=== PATIENT | female | born 1995 | race American Indian/Alaskan Native ===

== ENCOUNTER 2016-11-20 14:55 | Emergency (ER) | payer SELFPAY ==
[2016-11-20 15:03] VITALS: BP 120/77
--- NOTE | 2016-11-20 16:04 | XRay Report ---
Single view chest: History: Cough. Findings: Normal cardiomediastinal silhouette. Trachea is midline. No consolidation, pneumothorax or pleural effusion. Impression No acute cardiopulmonary findings.
--- NOTE | 2016-11-20 16:40 | Emergency Department Report ---
Entered by SINGH HIGGINS, acting as scribe for FADIA ADHIKARI NP. - General Chief Complaint: Upper Respiratory Infection Stated Complaint: FLU SYMPTOMS Time Seen by Provider: 11/20/16 15:42 Source: patient Mode of arrival: Ambulatory Limitations: No Limitations - History of Present Illness Initial Comments: 21 y/o female presents to the ED c/o throat pain that began 3 days ago. Associated symptoms include fever, chills, body aches, SOB, productive cough with green sputum and hoarseness but denies ear pain and chest pain. Pain is described as constant and 10/10 on a severity scale. No alleviating or aggravating factors. Allergic to lidocaine. LMP 10/30/16. MD Complaint: sore throat Onset/Timin -: days(s) Severity: severe Severity scale (0 -10): 10 Consistency: constant Improves With: nothing Worsens With: nothing Associated Symptoms: fever, chills, sore throat, cough, shortness of breath, hoarseness, other (bodyaches, no ear pain, no chest pain) Treatments Prior to Arrival: none - Related Data Previous Rx's Medication Instructions Recorded Last Taken Type Ibuprofen [Motrin 600 MG tab] 600 mg PO Q8H PRN #30 tablet 05/10/16 Unknown Rx Multivitamin with Iron 1 each PO DAILY #30 tablet 05/10/16 Unknown Rx [Multivitamins with Iron] Amoxicillin/K Clav Tab [Augmentin 1 tab PO Q12HR #20 tab 11/20/16 Unknown Rx 875 mg] Guaifenesin/Pseudoephedrne HCl 1 each PO BID PRN #24 tab.er.12h 11/20/16 Unknown Rx [Mucinex D ER 1,200-120 mg Tab] Ibuprofen [Motrin 800 MG tab] 800 mg PO Q8HR PRN #30 tablet 11/20/16 Unknown Rx Allergies Allergy/AdvReac Type Severity Reaction Status Date / Time latex Allergy Mild Rash Verified 05/08/16 18:40 lidocaine Allergy Swelling Verified 11/20/16 14:59 ED Review of Systems Comment: All other systems reviewed and negative Constitutional: chills, fever, other (bodyaches) ENT: throat pain, other (hoarseness ). denies: ear pain Respiratory: cough, shortness of breath Cardiovascular: denies: chest pain ED Past Medical Hx - Past Medical History Hx Hypertension: No Hx Congestive Heart Failure: No Hx Diabetes: No Hx Deep Vein Thrombosis: No Hx Renal Disease: No Hx Sickle Cell Disease: No Hx Seizures: No Hx Asthma: No Hx HIV: No - Surgical History Past Surgical History?: No - Social History Smoking Status: Never Smoker Substance Use Type: None - Medications Home Medications: Home Medications Medication Instructions Recorded Confirmed Last Taken Type Ibuprofen [Motrin 600 MG tab] 600 mg PO Q8H PRN #30 tablet 05/10/16 Unknown Rx Multivitamin with Iron 1 each PO DAILY #30 tablet 05/10/16 Unknown Rx [Multivitamins with Iron] Amoxicillin/K Clav Tab [Augmentin 1 tab PO Q12HR #20 tab 11/20/16 Unknown Rx 875 mg] Guaifenesin/Pseudoephedrne HCl 1 each PO BID PRN #24 tab.er.12h 11/20/16 Unknown Rx [Mucinex D ER 1,200-120 mg Tab] Ibuprofen [Motrin 800 MG tab] 800 mg PO Q8HR PRN #30 tablet 11/20/16 Unknown Rx ED Physical Exam - General Limitations: No Limitations General appearance: alert, in no apparent distress - Head Head exam: Present: atraumatic, normocephalic, normal inspection - Eye Eye exam: Present: normal appearance, PERRL, EOMI Pupils: Present: normal accommodation - ENT ENT exam: Present: normal external ear exam, other (frontal and maxillary sinus pain, throat lessions, white exudate, erythema) - Expanded ENT Exam Expanded Ear exam: Absent: auricular hematoma, auricular trauma TM/Canal exam: Erythema: Right TM, Left TM Mouth exam: Absent: trismus, tongue normal, tongue elevation Teeth exam: Present: normal inspection Throat exam: Positive: tonsillar erythema, tonsillomegaly, tonsillar exudate, other (bilat frontal and maxillary sinus pain to palpaton , nose: bilater turbinate erythema boggy no obstruction). Negative: R peritonsillar mass, L peritonsillar mass - Neck Neck exam: Present: normal inspection, full ROM. Absent: tenderness - Respiratory Respiratory exam: Present: normal lung sounds bilaterally. Absent: wheezes, rales, rhonchi - Cardiovascular Cardiovascular Exam: Present: regular rate, normal rhythm, normal heart sounds. Absent: systolic murmur, diastolic murmur, rubs, gallop - GI/Abdominal GI/Abdominal exam: Present: soft, normal bowel sounds. Absent: tenderness, guarding, rebound - Extremities Exam Extremities exam: Present: normal inspection, full ROM, normal capillary refill. Absent: tenderness, pedal edema, joint swelling, calf tenderness - Back Exam Back exam: Present: normal inspection, full ROM. Absent: tenderness, CVA tenderness (R), CVA tenderness (L), muscle spasm, paraspinal tenderness, vertebral tenderness, rash noted - Neurological Exam Neurological exam: Present: alert, oriented X3 - Psychiatric Psychiatric exam: Present: normal affect, normal mood - Skin Skin exam: Present: warm, dry, intact, normal color. Absent: rash ED Course Vital Signs 11/20/16 14:59 Temperature 98.5 F Pulse Rate 86 Blood Pressure 120/77 O2 Sat by Pulse 96 Oximetry ED Medical Decision Making - Medical Decision Making pt presents for sinus congestion cough productive yellow, and sore throat , exam : TM erythema bilat , nose :bilat turbinate erythema edema clear post nasal drip , bilat frontal and maxillary sinus pain to palpation pharynx: moderate erythema exudate white, lesions, bilat tonsilomegaly, noted cervicle lymph lungs clear bilat no wheezing , given fever will treat for sinusitis, URI pt will follow up with primary care doctor if symptoms not improving ED Disposition Clinical Impression: Sinusitis Qualifiers: Sinusitis location: maxillary Chronicity: acute Recurrence: non-recurrent Qualified Code(s): J01.00 - Acute maxillary sinusitis, unspecified Pharyngitis Qualifiers: Pharyngitis/tonsillitis etiology: unspecified etiology Qualified Code(s): J02.9 - Acute pharyngitis, unspecified Disposition: - TO HOME OR SELFCARE Is pt being admited?: No Does the pt Need Aspirin: No Condition: Stable Instructions: Sinusitis (ED) Prescriptions: Amoxicillin/K Clav Tab [Augmentin 875 mg] 1 tab PO Q12HR #20 tab Guaifenesin/Pseudoephedrne HCl [Mucinex D ER 1,200-120 mg Tab] 1 each PO BID PRN #24 tab.er.12h PRN Reason: Cough Ibuprofen [Motrin 800 MG tab] 800 mg PO Q8HR PRN #30 tablet PRN Reason: Pain Referrals: PRIMARY CARE, [Primary Care Provider] - 3-5 Days Forms: Work/School Release Form(ED) Time of Disposition: 16:40 This documentation as recorded by the GISELA campos ELIZABETH,accurately reflects the service I personally performed and the decisions made by me, FADIA ADHIKARI, JONI.
== END 2016-11-20 16:45 | disposition home or self-care (01) ==
LOC: ED 14:55
DX: J01.00 Acute maxillary sinusitis, unspecified (principal); J02.9 Acute pharyngitis, unspecified; Z88.8 Allergy status to other drugs, medicaments and biological substances; Z91.040 Latex allergy status
CPT/HCPCS: 71010; 81025

== ENCOUNTER 2016-12-06 15:01 | Emergency (ER) | payer SELFPAY ==
[2016-12-06 16:08] VITALS: BP 117/83
--- NOTE | 2016-12-08 14:31 | ED Elopement Review ---
ED Pt Elopement review - Call Back decision Pt Call Back Decision: No action required
== END 2016-12-06 19:48 | disposition left against medical advice (07) ==
LOC: ED 15:01
DX: J02.9 Acute pharyngitis, unspecified (principal); R05 Cough; Z53.21 Procedure and treatment not carried out due to patient leaving prior to being seen by health care provider
CPT/HCPCS: 87116; 87430

== ENCOUNTER 2016-12-07 06:49 | Emergency (ER) | payer SELFPAY ==
[2016-12-07 06:56] VITALS: BP 128/96
--- NOTE | 2016-12-07 07:29 | XRay Report ---
AP CHEST: HISTORY: Cough AP view of the chest demonstrates a normal mediastinal and cardiac contour with clear lungs and normal bony and soft tissue structures. IMPRESSION: Unremarkable AP chest. No change since 11/20/16.
--- NOTE | 2016-12-07 09:58 | Emergency Department Report ---
ED Peds HEENT HPI - General Chief Complaint: Sore Throat Stated Complaint: THROAT PAIN, COUGH Source: patient Mode of arrival: Ambulatory Limitations: No Limitations - History of Present Illness Initial Comments: 21 year old female presents to ED with sore throat and cough. patient states she was here yesterday and had strep throat test but she left before she could obtain results and would like to know results. patient is stable, neurologically intact and in no acute distress. patient states she was has finished 10 days of Augmentin for previously diagnosed strep throat and sinusitis. MD Complaint: throat pain Onset/Timin -: week(s) Fever: No Pain Location: throat Severity scale (0 -10): 0 Consistency: constant Improves With: nothing Worsens With: nothing Context: recent URI Associated Symptoms: nasal congestion/discharge, sore throat, cough Treatments Prior: none - Centor Criteria Exudate or Swelling of Tonsils: (0) No Tender/Swollen Anterior Cervical Lymph Nodes: (0) No Fever ( T > 38C, 100.4F): (0) No Abscence of Cough: (0) No - Related Data Previous Rx's Medication Instructions Recorded Last Taken Type Ibuprofen [Motrin 600 MG tab] 600 mg PO Q8H PRN #30 tablet 05/10/16 Unknown Rx Multivitamin with Iron 1 each PO DAILY #30 tablet 05/10/16 Unknown Rx [Multivitamins with Iron] Amoxicillin/K Clav Tab [Augmentin 1 tab PO Q12HR #20 tab 11/20/16 Unknown Rx 875 mg] Guaifenesin/Pseudoephedrne HCl 1 each PO BID PRN #24 tab.er.12h 11/20/16 Unknown Rx [Mucinex D ER 1,200-120 mg Tab] Ibuprofen [Motrin 800 MG tab] 800 mg PO Q8HR PRN #30 tablet 11/20/16 Unknown Rx Allergies Allergy/AdvReac Type Severity Reaction Status Date / Time latex Allergy Mild Rash Verified 12/06/16 16:04 lidocaine Allergy Swelling Verified 12/06/16 16:04 ED Review of Systems ROS: Stated complaint: THROAT PAIN, COUGH Other details as noted in HPI Constitutional: denies: chills, fever Eyes: denies: eye pain, eye discharge, vision change ENT: throat pain. denies: ear pain Respiratory: cough. denies: shortness of breath, wheezing Cardiovascular: denies: chest pain, palpitations Endocrine: no symptoms reported Gastrointestinal: denies: abdominal pain, nausea, diarrhea Genitourinary: denies: urgency, dysuria, discharge Musculoskeletal: denies: back pain, joint swelling, arthralgia Skin: denies: rash, lesions Neurological: denies: headache, weakness, paresthesias Psychiatric: denies: anxiety, depression Hematological/Lymphatic: denies: easy bleeding, easy bruising Pediatric Past Medical History - Chronic Health Problems Hx Asthma: No Hx Diabetes: No Hx HIV: No Hx Renal Disease: No Hx Sickle Cell Disease: No Hx Seizures: No ED Peds HEENT EXAM - General General appearance: alert, in no apparent distress Limitations: No Limitations - Head Head exam: Positive: atraumatic, normocephalic - Eye Eye Exam: Normal Apperance, PERRL, EOMI - ENT ENT exam: Positive: normal exam, mucous membranes moist, TM's normal bilaterally Negative: Tonsillar Exudate, Pharangeal Exudate, Peritonsillar Swelling Ear Exam: Normal External Exam: Right, Left - Neck Neck exam: Positive: normal inspection. Negative: tenderness, lymphadenopathy - Respiratory Respiratory exam: Positive: normal lung sounds bilaterally. Negative: respiratory distress, wheezes - Cardiovascular Cardiovascular Exam: Positive: regular rate, normal rhythm, normal heart sounds - GI/Abdominal GI/Abdominal exam: Positive: soft. Negative: distended, tenderness - Back Back exam: normal inspection, full ROM - Neurological Neurological Exam: Positive: Alert, Oriented X3, Normal Gait - Psychiatric Psychiatric exam: Positive: normal affect, normal mood - Skin Skin exam: Positive: warm, dry, intact, normal color ED Course Vital Signs 12/07/16 06:53 Temperature 98.3 F Pulse Rate 79 Respiratory 18 Rate Blood Pressure 128/96 O2 Sat by Pulse 97 Oximetry ED Medical Decision Making - Lab Data Negative rapid strep strep culture pending - Radiology Data Radiology results: report reviewed CXR Unremarkable AP chest. No change since 11/20/2016 - Medical Decision Making 21 year old female presents to ED with sore throat and cough. patient has negative rapid strep and strep culture pending. patient has negative imaging study. patient is stable, neurologically intact and in no acute distress. patient understands and agrees that strep culture takes 72 hours to result and she can come back to medical records for results. patient refused pain medication stating she already has pain medication at home. Critical care attestation.: If time is entered above; I have spent that time in minutes in the direct care of this critically ill patient, excluding procedure time. ED Disposition Clinical Impression: Bronchitis, acute Qualifiers: Bronchitis organism: unspecified organism Qualified Code(s): J20.9 - Acute bronchitis, unspecified Disposition: DC-01 TO HOME OR SELFCARE Is pt being admited?: No Does the pt Need Aspirin: No Condition: Stable Instructions: Acute Bronchitis (ED) Referrals: PRIMARY CARE, [Primary Care Provider] - 2-3 Days Forms: Work/School Release Form(ED)
== END 2016-12-07 08:59 | disposition home or self-care (01) ==
LOC: ED 06:49
DX: J20.9 Acute bronchitis, unspecified (principal)
CPT/HCPCS: 71010; 87116; 87430; 99283

== ENCOUNTER 2016-12-25 09:34 | Emergency (ER) | payer SELFPAY ==
[2016-12-25 10:02] VITALS: BP 123/74
[2016-12-25] MEDS: MOTRIN PO ONE (13:35)
[2016-12-25] MEDS: DELTASONE PO ONE (13:35)
--- NOTE | 2016-12-25 15:06 | Emergency Department Report ---
Entered by ROSALVA KEMP, acting as scribe for MARÍA CROWELL PA. HPI - General Chief Complaint: Sore Throat Time Seen by Provider: 12/25/16 12:45 - HPI HPI: 21 y/o female with no significant PMHx presents to the ED c/o a sore throat that began 3 days ago. Rates pain a 10/10 in severity, which she describes as aching in quality. Aggravated with swallowing and eating, and alleviated with nothing. Reports associated decreased appetite, mild cough, nasal drainage, fever, chills, nausea, and vomiting, but she denies congestion, drooling, ear pain, headache, stiff neck, dizziness, chest pain, and SOB. Denies taking any medication for pain. Patient states she was diagnosed with strep throat recently and prescribed Augmentin with relief. Now sore throat is back. LMP 11/29/2016. Allergic to latex and lidocaine. ED Past Medical Hx - Past Medical History Previous Medical History?: Yes Hx Hypertension: No Hx Congestive Heart Failure: No Hx Diabetes: No Hx Deep Vein Thrombosis: No Hx Renal Disease: No Hx Sickle Cell Disease: No Hx Seizures: No Hx Asthma: No Hx HIV: No Additional medical history: strep. throat - Surgical History Past Surgical History?: No - Family History Family history: no significant - Social History Smoking Status: Never Smoker Substance Use Type: None - Medications Home Medications: Home Medications Medication Instructions Recorded Confirmed Last Taken Type Multivitamin with Iron 1 each PO DAILY #30 tablet 05/10/16 Unknown Rx [Multivitamins with Iron] Amoxicillin/K Clav Tab [Augmentin 1 tab PO Q12HR #20 tab 11/20/16 Unknown Rx 875 mg] Guaifenesin/Pseudoephedrne HCl 1 each PO BID PRN #24 tab.er.12h 11/20/16 Unknown Rx [Mucinex D ER 1,200-120 mg Tab] Ibuprofen [Motrin 800 MG tab] 800 mg PO Q8HR PRN #30 tablet 11/20/16 Unknown Rx Ibuprofen [Motrin 600 MG tab] 600 mg PO Q8H PRN #15 tablet 12/25/16 Unknown Rx Penicillin Vk [Veetids TAB] 500 mg PO Q8H #60 tablet 12/25/16 Unknown Rx Promethazine [Phenergan TAB] 25 mg PO Q8HR PRN #12 tab 12/25/16 Unknown Rx ED Review of Systems ROS: Stated complaint: THROAT PAIN/CANT EAT/ Other details as noted in HPI Comment: All other systems reviewed and negative Constitutional: chills, fever. denies: diaphoresis, weakness Eyes: denies: eye pain, eye discharge, vision change ENT: throat pain, other (rhinorrhea). denies: ear pain, dental pain, hearing loss, epistaxis, congestion Respiratory: cough. denies: orthopnea, shortness of breath, SOB with exertion, SOB at rest, stridor, wheezing Cardiovascular: denies: chest pain, palpitations, dyspnea on exertion, orthopnea , edema, syncope, paroxysmal nocturnal dyspnea Endocrine: no symptoms reported Gastrointestinal: nausea, vomiting. denies: abdominal pain, diarrhea Musculoskeletal: denies: back pain, joint swelling, arthralgia Skin: denies: rash, lesions Neurological: denies: headache, weakness, numbness, paresthesias Hematological/Lymphatic: denies: easy bleeding, easy bruising Physical Exam - Physical Exam Vital Signs: Vital Signs 12/25/16 09:57 Temperature 99.1 F Pulse Rate 105 H Respiratory 16 Rate Blood Pressure 123/74 Blood Pressure 123/74 [Right] O2 Sat by Pulse 100 Oximetry Vital Signs 12/25/16 12/25/16 12/25/16 09:57 13:35 14:41 Temperature 99.1 F Pulse Rate 105 H 92 H Respiratory 16 18 Rate Blood Pressure 123/74 Blood Pressure 123/74 [Right] O2 Sat by Pulse 100 Oximetry General: General: This is a well nourished, well developed, 21 year old female in no acute distress and nontoxic in appearance Physical Exam: Head: Normocephalic, atraumatic Mouth: Moist. Positive pharyngeal erythema with exudates and mild swelling. Uvula is midline and oral airway is patent. No facial swelling. No peritonsillar abscesses. Nose: Normal external appearance, mucosa normal no drainage. Maxillary and frontal sinuses nontender to palpation Neck: Supple, no C-spine tenderness, no tracheal deviation. Nontender to palpation. Anterior cervical adenopathy present. Ears: Bilateral TMs are without any redness, swelling, or drainage. Bilateral EAC without any redness, swelling, or drainage. Abdomen: Soft, nontender to palpation in all quadrants, normal bowel sounds in all quadrants and negative CVA tenderness bilaterally. Eyes: Bilateral pupils equal and reactive to light, bilateral EOM intact. Bilateral sclera and conjunctiva without injection. Normal accommodation. Lungs: Clear to auscultation bilaterally, no rhonchi, wheezes, or rales. Normal work of breathing. No use of accessory muscles Extremities: No CCE. +2 pulses. No neurovascular compromise Cardiovascular: S1-S2,Tachycardic 105 , regular rhythm. No murmurs. Skin: Clean, dry, and intact with no rash and no lesions Psych: Normal mood and behavior ED Course Vital Signs 12/25/16 09:57 Temperature 99.1 F Pulse Rate 105 H Respiratory 16 Rate Blood Pressure 123/74 Blood Pressure 123/74 [Right] O2 Sat by Pulse 100 Oximetry Vital Signs 12/25/16 12/25/16 12/25/16 09:57 13:35 14:41 Temperature 99.1 F Pulse Rate 105 H 92 H Respiratory 16 18 Rate Blood Pressure 123/74 Blood Pressure 123/74 [Right] O2 Sat by Pulse 100 Oximetry - Reevaluation(s) Reevaluation #1: 12/25/16 14:50 She received Motrin 800 mg by mouth for pain which helped her sore throat." This on to decrease swelling to throat. ED Medical Decision Making - Lab Data Lab Results 12/25/16 Range/Units 13:29 Monoscreen Negative (Negative) - Medical Decision Making ED course: He reports that she has sore throats with difficulty swallowing, fever and chills, nausea with some vomiting. Based on Centor criteria findings for exudative pharyngitis based on pharynx with erythema and exudate, fever and chills and enlarged tonsils. Miner test is negative. Patient was here on 2016 and treated with Augmentin, Motrin, guaifenesin and ibuprofen and she said she had felt better but now her sore throat is back. She was given Motrin 800 mg and Decadron 60 mg by mouth and she reports that she is feeling better. I relayed result of mono test the patient and explained diagnosis and treatment plan and she is in agreement. Patient heart rate is below 100 at present. Able to tolerate oral liquid and in the difficulties. Patient discharged home in stable condition with prescription for penicillin VK to take for 10 days, phenergan and Motrin when necessary. explained to her that she needs to follow up with her primary care physician and if she does not have one that she'll need to follow-up at [facility]. Critical care attestation.: If time is entered above; I have spent that time in minutes in the direct care of this critically ill patient, excluding procedure time. ED Disposition Clinical Impression: Exudative pharyngitis, Fever in adult Nausea & vomiting Qualifiers: Vomiting type: unspecified Vomiting Intractability: non-intractable Qualified Code(s): R11.2 - Nausea with vomiting, unspecified Disposition: DC-01 TO HOME OR SELFCARE Is pt being admited?: No Does the pt Need Aspirin: No Condition: Stable Instructions: Strep Throat (ED), Fever in Adults (ED), Acute Nausea and Vomiting (ED) Additional Instructions: Please follow up with primary care as recommended Increase fluid intake Take medication as prescribed . avoid spicy food and hot liquid Prescriptions: Ibuprofen [Motrin 600 MG tab] 600 mg PO Q8H PRN #15 tablet PRN Reason: Pain Penicillin Vk [Veetids TAB] 500 mg PO Q8H #60 tablet Promethazine [Phenergan TAB] 25 mg PO Q8HR PRN #12 tab PRN Reason: Nausea Referrals: PRIMARY CARE,MD [Primary Care Provider] - 3-5 Days Forms: Work/School Release Form(ED), Accompanied Note This documentation as recorded by the VIRIDIANA campos JASMINE,accurately reflects the service I personally performed and the decisions made by me,MARÍA CROWELL PA.
== END 2016-12-25 15:17 | disposition home or self-care (01) ==
LOC: ED 09:34
DX: J02.9 Acute pharyngitis, unspecified (principal); R11.2 Nausea with vomiting, unspecified
CPT/HCPCS: 36415; 86308; 99283; J7512

== ENCOUNTER 2017-04-03 07:24 | Emergency (ER) | payer SELFPAY ==
[2017-04-03] MEDS ORDERED: NORCO PO ONE (07:59)
[2017-04-03] MEDS ORDERED: TRIMOX PO ONE (08:00)
--- NOTE | 2017-04-03 08:05 | Emergency Department Report ---
Abscess Boil HPI - HPI Chief Complaint: Extremity Injury, Upper Stated Complaint: swollen and painful finger, no trauma Time Seen by Provider: 04/03/17 07:42 Duration: 3 Days Location: Other (finger) History: Yes Pain, Yes Purulent Drainage, No Fever, No Numbness, No Foreign Body , No Previous History, No Insect Bite Home Medications: Previous Rx's Medication Instructions Recorded Last Taken Type Amoxicillin [Trimox CAP] 500 mg PO BID #20 capsule 04/03/17 Unknown Rx traMADol [Ultram] 50 mg PO Q6HR PRN #12 tablet 04/03/17 Unknown Rx Allergies/Adverse Reactions: Allergies Allergy/AdvReac Type Severity Reaction Status Date / Time latex Allergy Mild Rash Verified 12/25/16 10:02 lidocaine Allergy Swelling Verified 12/25/16 10:02 ED Review of Systems ROS: Stated complaint: LEFT FINGER SWOLLEN Other details as noted in HPI Comment: All other systems reviewed and negative Skin: other (parony. l index finger) ED Past Medical Hx - Past Medical History Hx Hypertension: No Hx Congestive Heart Failure: No Hx Diabetes: No Hx Deep Vein Thrombosis: No Hx Renal Disease: No Hx Sickle Cell Disease: No Hx Seizures: No Hx Asthma: No Hx HIV: No Additional medical history: strep. throat - Social History Smoking Status: Never Smoker Substance Use Type: None - Medications Home Medications: Home Medications Medication Instructions Recorded Confirmed Last Taken Type Amoxicillin [Trimox CAP] 500 mg PO BID #20 capsule 04/03/17 Unknown Rx traMADol [Ultram] 50 mg PO Q6HR PRN #12 tablet 04/03/17 Unknown Rx ED Abscess Boil Physical Exam - Exam General: Vital signs noted. No distress. Alert and acting appropriately. Size: 1 cm Exam: Yes Tenderness, Yes Fluctuance, Yes Normal Neurologic Exam, Yes Normal Circulation, No Surrounding Cellulites/Erythema, No Lymphangitis, No Crepitation , No Heart Murmur I & D Note - I & D Note I & D Note: straight blade to open paronychia p cleaned w betadine. tolerated well. min purulent dc. dressing applied ED Course Vital Signs 04/03/17 07:35 Temperature 98.3 F Pulse Rate 84 Respiratory 18 Rate Blood Pressure 123/68 O2 Sat by Pulse 100 Oximetry Critical care attestation.: If time is entered above; I have spent that time in minutes in the direct care of this critically ill patient, excluding procedure time. ED Medical Decision Making - Medical Decision Making see note - Differential Diagnosis paronychia ED Disposition Clinical Impression: Paronychia Disposition: DC-01 TO HOME OR SELFCARE Is pt being admited?: No Does the pt Need Aspirin: No Condition: Stable Instructions: Paronychia (ED) Additional Instructions: soak in epsom salts three times per day for 20 minutes per day meds as ordered today Referrals: JEANETTE VELEZ MD [Staff Physician] - 3-5 Days Time of Disposition: 08:03
[2017-04-03 08:24] VITALS: BP 123/69
== END 2017-04-03 08:25 | disposition home or self-care (01) ==
LOC: ED 07:24
DX: L03.012 Cellulitis of left finger (principal); Z88.4 Allergy status to anesthetic agent; Z91.040 Latex allergy status
CPT/HCPCS: 99282

== ENCOUNTER 2017-04-06 09:23 | Emergency (ER) | payer SELFPAY ==
[2017-04-06 09:33] VITALS: BP 124/65
--- NOTE | 2017-04-06 11:04 | Emergency Department Report ---
Abscess Boil HPI - HPI Chief Complaint: Extremity Problem,Nontraumatic Stated Complaint: FINGER ISSUE Time Seen by Provider: 04/06/17 09:41 Duration: 4 Days Location: Upper Extremity Severity: Mild History: Yes Pain, No Fever, No Purulent Drainage, No Numbness, No Foreign Body , No Previous History, No Insect Bite HPI: This is a 21-year-old female nontoxic, well nourished in appearance, no acute signs of distress resents to the ED with c/o of right index finger paronychia. Patient stated she was seen in the ED 04/03/2017 and had the paroncyhia incisioned and drainage. Patient stated the swelling has returned yesterday. Patient denies any trauma to the region. Patient stated has been taking amox as prescribed. PAtient denies any fever, chills, headache, n/v, chest pain, shortness of breathe, numbness, tingling, joint swelling, joint redness. Patietnt states allergies to latex and lidocaine. Denies PMH. Home Medications: Previous Rx's Medication Instructions Recorded Last Taken Type Amoxicillin [Trimox CAP] 500 mg PO BID #20 capsule 04/03/17 Unknown Rx traMADol [Ultram] 50 mg PO Q6HR PRN #12 tablet 04/03/17 Unknown Rx Sulfamethoxazole/Trimethoprim 1 each PO BID #14 tablet 04/06/17 Unknown Rx [Bactrim Ds Tablet] Allergies/Adverse Reactions: Allergies Allergy/AdvReac Type Severity Reaction Status Date / Time latex Allergy Mild Rash Verified 04/06/17 09:33 lidocaine Allergy Swelling Verified 04/06/17 09:33 ED Review of Systems ROS: Stated complaint: FINGER ISSUE Other details as noted in HPI Constitutional: denies: chills, fever Eyes: denies: eye pain, eye discharge, vision change ENT: denies: ear pain, throat pain Respiratory: denies: cough, shortness of breath, wheezing Cardiovascular: denies: chest pain, palpitations Endocrine: no symptoms reported Gastrointestinal: denies: abdominal pain, nausea, diarrhea Genitourinary: denies: urgency, dysuria, discharge Musculoskeletal: denies: back pain, joint swelling, arthralgia Skin: denies: rash, lesions Neurological: denies: headache, weakness, paresthesias Psychiatric: denies: anxiety, depression Hematological/Lymphatic: denies: easy bleeding, easy bruising ED Past Medical Hx - Past Medical History Previous Medical History?: No Hx Hypertension: No Hx Congestive Heart Failure: No Hx Diabetes: No Hx Deep Vein Thrombosis: No Hx Renal Disease: No Hx Sickle Cell Disease: No Hx Seizures: No Hx Asthma: No Hx HIV: No Additional medical history: strep. throat - Surgical History Past Surgical History?: No - Social History Smoking Status: Never Smoker Substance Use Type: None - Medications Home Medications: Home Medications Medication Instructions Recorded Confirmed Last Taken Type Amoxicillin [Trimox CAP] 500 mg PO BID #20 capsule 04/03/17 Unknown Rx traMADol [Ultram] 50 mg PO Q6HR PRN #12 tablet 04/03/17 Unknown Rx Sulfamethoxazole/Trimethoprim 1 each PO BID #14 tablet 04/06/17 Unknown Rx [Bactrim Ds Tablet] ED Abscess Boil Physical Exam - Exam General: Vital signs noted. No distress. Alert and acting appropriately. GENERAL: The patient is a well-developed, well-nourished female in no apparent distress. Patient is alert and acting appropriately for age. Alert and oriented 3, no apparent distress, normal gait, atraumatic. HEENT: Head is normocephalic and atraumatic. PERRL, Extraocular muscles are intact. Pupils are equal, round, and reactive to light and accommodation. Nares appeared normal. Mouth is well hydrated and without lesions. Mucous membranes are moist. Posterior pharynx clear of any exudate or lesions. Mouth is well hydrated and without lesions. Tonsils not erythematous or swollen. Uvula midline. Tongue elevated. Mucous members are moist. Posterior pharynx clear, no exudate or lesions. Patent airways. NECK: Supple. No carotid bruits. No lymphadenopathy or thyromegaly.nontender. No meningitic signs are noted. LUNGS: Clear to auscultation. Non labor breathing. No intercostal retractions. Symmetrical with respiration, no wheezing, no rales, or crackles. HEART: Regular rate and rhythm without murmur, rubs or gallops. No reproducible. S1, S2 present, regular rate and rhythm without murmur, no rubs, no gallops. ABDOMEN: Soft, nontender, and nondistended. Positive bowel sounds. No hepatosplenomegaly was noted. No guarding or rebound tenderness, negative epigastric bruit. Negative psoas sign, negative gagnon sign, negative McBurneys sign EXTREMITIES: Without any cyanosis, clubbing, rash, lesions or edema. Peripheral pulses intact. Capillary refill less than 2 seconds. Full range of motion bilaterally. NEUROLOGIC: Cranial nerves II through XII are grossly intact. Alert and oriented x 3. Normal gait. Symmetrical strength and sensation. Reflexes 2+ throughout. Cerebellar testing normal. GCS score of 15. PSYCHIATRIC: Normal affect with no suicidal or homicidal ideations. Skin: Positive induration and proximal wrist paronychia of left index region. No pus or drainage noted. No erythema noted or cellulites noted. Exam: Yes Tenderness, Yes Fluctuance, Yes Normal Neurologic Exam, Yes Normal Circulation, No Surrounding Cellulites/Erythema, No Lymphangitis, No Crepitation , No Heart Murmur I & D Note - I & D Note I & D Note: Under sterile field, I used Betadine to cleanse the area. I then used an 18 gauge hypo and aspirated purulent drainage. About 0.5 mL of purulent drainage has been noted. I then used sterile 0.9% normal saline flush to flush the wound with total volume of 40 mL used. A sterile 4 x 4 with tape has been applied as dressing. Bleeding is under control. Patient tolerated the procedure well with no signs of distress noted. ED Course Vital Signs 04/06/17 09:29 Temperature 98.3 F Pulse Rate 88 Respiratory 16 Rate Blood Pressure 124/65 O2 Sat by Pulse 95 Oximetry - Reevaluation(s) Reevaluation #1: 04/06/17 11:09 Patient is speaking in full sentences with no signs of distress noted. Critical care attestation.: If time is entered above; I have spent that time in minutes in the direct care of this critically ill patient, excluding procedure time. ED Medical Decision Making - Medical Decision Making This is a 21-year-old female that presents with paronychia. Patient is stable and was examined by me. I/D has been performed and patient tolerated well. Patient was instructed to stop taking Amox and patient will be treated with bactrim. Patient was instructed to follow-up with a primary care doctor in 3-5 days or if symptoms worse to return to the ED as soon as possible. At time time of discharge, the patient does not seem toxic or ill in appearance. No acute signs of distress noted. Patient agrees to discharge treatment plan of care. No further questions noted by the patient. ED Disposition Clinical Impression: Paronychia Disposition: DC-01 TO HOME OR SELFCARE Is pt being admited?: No Does the pt Need Aspirin: No Condition: Stable Instructions: Paronychia (ED), Sulfamethoxazole/Trimethoprim (By mouth), Ibuprofen (By mouth) Additional Instructions: Follow-up with a primary care doctor in 3-5 days or if symptoms worsen and continue return to emergency room as soon as possible. Stop taking Amoxicillin and take Bactrim as prescribed and directed. Prescriptions: Sulfamethoxazole/Trimethoprim [Bactrim Ds Tablet] 1 each PO BID #14 tablet Referrals: PRIMARY CARE, [Primary Care Provider] - 3-5 Days MARIE VASQUES MD [Staff Physician] - 3-5 Days [facility] [Outside] - 3-5 Days [facility] [Outside] - 3-5 Days Forms: Work/School Release Form(ED)
== END 2017-04-06 11:36 | disposition home or self-care (01) ==
LOC: ED 09:23
DX: L03.011 Cellulitis of right finger (principal); Z91.040 Latex allergy status

== ENCOUNTER 2017-07-01 20:02 | Emergency (ER) | payer SELFPAY ==
[2017-07-01 21:31] VITALS: BP 115/75
[2017-07-01 21:57] LABS: Basophils % (Auto) 0.5 % (0.0-1.8); Eosinophils # (Auto) 0.1 K/mm3 (0.0-0.4); Eosinophils % (Auto) 1.9 % (0.0-4.3); Hematocrit 39.4 % (30.3-42.9); Hemoglobin 12.6 gm/dl (10.1-14.3); Lymphocytes # (Auto) 2.4 K/mm3 (1.2-5.4); Lymphocytes % (Auto) 42.6 % (13.4-35.0); Mean Corpuscular HGB Conc 32 % (30-34); Mean Corpuscular Hemoglobin 27 pg (28-32); Mean Corpuscular Volume 85 fl (79-97); Monocytes # (Auto) 0.5 K/mm3 (0.0-0.8); Monocytes % (Auto) 8.7 % (0.0-7.3); Platelet Count 233 K/mm3 (140-440); Red Blood Count 4.65 M/mm3 (3.65-5.03)
[2017-07-01 22:10] LABS: Alanine Aminotransferase 8 units/L (7-56); Albumin 4.3 g/dL (3.9-5); BUN/Creatinine Ratio 28; Blood Urea Nitrogen 17 mg/dL (7-17); Hemolysis Index 2
[2017-07-01 22:21] LABS: Amorphous Crystals,Urine Few; Bacteria,Urine 1+ /HPF (Negative); Bilirubin,Urine NEG (Negative); Blood,Urine SM (Negative); Color,Urine Yellow (Yellow); Mucus,Urine 2+ /HPF; Nitrite,Urine POS (Negative); Urobilinogen,Urine < 2.0 mg/dL (<2.0)
[2017-07-01] MEDS ORDERED: CLARITIN ONE (22:45)
[2017-07-01] MEDS ORDERED: KEFLEX PO ONE (23:26)
[2017-07-02] MEDS ORDERED: XYLOCAINE 1% MPF 5 mL INFILTRATI ONE (01:52)
[2017-07-02] MEDS ORDERED: ROCEPHIN IM ONE (01:52)
[2017-07-02] MEDS ORDERED: FLAGYL PO ONE (01:52)
[2017-07-02] MEDS ORDERED: ZITHROMAX PO ONE (01:52)
[2017-07-02] MEDS ORDERED: ZOFRAN ODT PO ONE (01:53)
[2017-07-02] MEDS ORDERED: MOTRIN PO ONE (01:53)
--- NOTE | 2017-07-02 01:54 | Emergency Department Report ---
HPI - General Chief Complaint: Abdominal Pain Time Seen by Provider: 07/01/17 23:25 - HPI HPI: The patient is a 22-year-old female presents for evaluation of abdominal pain. The patient reports suprapubic abdominal pain for the past 5 days, crampy in quality, moderate in severity, exacerbated with urination. She also reports associated dysuria. The patient denies fever, chills, night sweats, diarrhea, blood in the stool, dark tarry stool, hematuria, flank pain, genital discharge, inability to pass flatus. ED Past Medical Hx - Past Medical History Hx Hypertension: No Hx Congestive Heart Failure: No Hx Diabetes: No Hx Deep Vein Thrombosis: No Hx Renal Disease: No Hx Sickle Cell Disease: No Hx Seizures: No Hx Asthma: No Hx HIV: No Additional medical history: strep. throat - Surgical History Past Surgical History?: No - Social History Smoking Status: Never Smoker Substance Use Type: None - Medications Home Medications: Home Medications Medication Instructions Recorded Confirmed Last Taken Type Amoxicillin [Trimox CAP] 500 mg PO BID #20 capsule 04/03/17 Unknown Rx Sulfamethoxazole/Trimethoprim 1 each PO BID #14 tablet 04/06/17 Unknown Rx [Bactrim Ds Tablet] Acetaminophen/Codeine [Tylenol #3] 1 tab PO Q6H PRN #10 tab 07/02/17 Unknown Rx Cephalexin [Keflex] 500 mg PO Q6HR #20 capsule 07/02/17 Unknown Rx Ibuprofen [Motrin] 800 mg PO Q8HR PRN #15 tablet 07/02/17 Unknown Rx metroNIDAZOLE [Flagyl] 500 mg PO Q12HR #14 tab 07/02/17 Unknown Rx ED Review of Systems ROS: Stated complaint: ABD PAIN; VAG PAIN Other details as noted in HPI Constitutional: denies: fever ENT: denies: throat or neck pain Respiratory: denies: cough, shortness of breath Cardiovascular: denies: chest pain Endocrine: denies unexplained weight loss or gain Gastrointestinal: reports abdominal pain, nausea Genitourinary: denies: dysuria Musculoskeletal: denies: leg swelling Skin: denies: rash Neurological: denies: headache Hematological/Lymphatic: denies: easy bleeding or easy bruising Psych: denies sadness or hopelessness Physical Exam - Physical Exam Vital Signs: Vital Signs 07/01/17 07/02/17 21:27 00:02 Temperature 98 F Pulse Rate 89 Respiratory 16 20 Rate Blood Pressure 115/75 O2 Sat by Pulse 98 Oximetry Physical Exam: General: well-nourished, well-developed, no acute distress Head: Normocephalic, atraumatic Eyes: normal sclera ENT: Mucous membranes are pink and moist Neck: trachea midline, neck supple, No neck stiffness, no cervical adenopathy Respiratory: Breath sounds equal bilaterally, no wheezing, rales, or rhonchi Cardio: S1 and S2 present, no murmurs, rubs, gallops, capillary refill is brisk Abdomen: Normoactive bowel sounds, soft abdomen, suprapubic tenderness present, no rigidity, no guarding or rebound tenderness Musc: No pitting edema Skin: No rash Neuro: no facial drooping, normal speech Psych: Normal affect ED Course Vital Signs 07/01/17 07/02/17 21:27 00:02 Temperature 98 F Pulse Rate 89 Respiratory 16 20 Rate Blood Pressure 115/75 O2 Sat by Pulse 98 Oximetry ED Medical Decision Making - Lab Data Result diagrams: 07/01/17 21:36 07/01/17 21:36 - Medical Decision Making The patient was seen and examined by myself. The patient is placed on a chrome polisher and continuous pulse ox. On initial evaluation, the patient was found to be in no distress. Evaluation orders are placed. The patient is given pain medicine. Lab results revealed elevated urine WBC greater than 130, with positive leukocyte esterase, consistent with acute urinary tract infection. Otherwise labs Were non-concerning including WBC, hemoglobin, hematocrit, electrolytes, renal function, LFTs, lipase, and negative test. The patient is given an IM dose of Rocephin and she'll be given a prescription for Keflex for treatment of her UTI. She requested treatment for STDs due to concerning sexual encounter. She declines pelvic exam. She was given by mouth azithromycin and Flagyl. The patient was reevaluated and reported that their symptoms were markedly improved. The patient is stable for discharge with outpatient follow-up. The patient is given follow-up and return instructions. The patient expressed understanding and agreed with the plan. The patient is discharged in stable condition. Critical care attestation.: If time is entered above; I have spent that time in minutes in the direct care of this critically ill patient, excluding procedure time. ED Disposition Clinical Impression: Acute lower UTI (urinary tract infection), Suprapubic abdominal pain Vaginitis Qualifiers: Chronicity: acute Qualified Code(s): N76.0 - Acute vaginitis Disposition: TO HOME OR SELFCARE Is pt being admited?: No Does the pt Need Aspirin: No Condition: Stable Instructions: Sexually Transmitted Diseases (ED), Safe Sex (ED), Urinary Tract Infection in Women (ED), Abdominal Pain (ED) Prescriptions: Acetaminophen/Codeine [Tylenol #3] 1 tab PO Q6H PRN #10 tab PRN Reason: Pain Cephalexin [Keflex] 500 mg PO Q6HR #20 capsule Ibuprofen [Motrin] 800 mg PO Q8HR PRN #15 tablet PRN Reason: Pain metroNIDAZOLE [Flagyl] 500 mg PO Q12HR #14 tab Referrals: PRIMARY CARE, [Primary Care Provider] - 3-5 Days Time of Disposition: 01:53
[2017-07-02] MEDS ORDERED: XYLOCAINE 1% 20 mL ONE (02:31)
== END 2017-07-02 03:40 | disposition home or self-care (01) ==
LOC: ED 20:02
DX: N39.0 Urinary tract infection, site not specified (principal); N76.0 Acute vaginitis
CPT/HCPCS: 36415; 80053; 81001; 84703; 85025; 96372; 99284; J0696; Q0162

== ENCOUNTER 2021-01-13 08:43 | Emergency (ER) | payer OTHER, SELFPAY ==
[2021-01-13 09:23] VITALS: BP 152/66
[2021-01-13 11:15] LABS: Bilirubin,Urine NEG (Negative); Blood,Urine MOD (Negative); Color,Urine Yellow (Yellow); Mucus,Urine 2+ /HPF; Protein,Urine <15 mg/dL mg/dL (Negative); Urobilinogen,Urine < 2.0 mg/dL (<2.0)
[2021-01-13 13:46] LABS: HCG Qualitative,Urine Negative (Negative)
[2021-01-13] MEDS ORDERED: ACETAMINOPHEN 325 MG TAB PO ONE ×2 (14:32→18:09)
--- NOTE | 2021-01-13 18:15 | Emergency Department Report ---
- General Chief Complaint: Pain General Stated Complaint: BODYACHES Time Seen by Provider: 01/13/21 17:53 Source: patient Mode of arrival: Ambulatory Limitations: No Limitations - History of Present Illness Initial Comments: 25-year-old -[place] Citizen female who was partially vaccinated on January 05, 2021 presents to the emergency room for fever chills runny nose sneezing cough that started Wednesday. Patient has not been Covid tested. She denies any chest pain no shortness of breath no nausea no vomiting no loss of taste or smell. She does admit to a decrease in appetite. Her last menstrual period was December 22, 2020 and states that she has had some spotting. Patient denies any abdominal pain. She denies any vaginal discharge denies any dysuria or urinary frequency or urgency. MD Complaint: fever, cough, rhinorrhea, nasal congestion Onset/Timin -: days(s) Severity scale (0 -10): 5 Quality: aching Consistency: constant Improves With: nothing Worsens With: nothing Associated Symptoms: fever, chills, headache, rhinorrhea, nasal congestion, cough. denies: chest pain, shortness of breath, abdominal pain, nausea, vomiting Treatments Prior to Arrival: none - Related Data Previous Rx's Medication Instructions Recorded Last Taken Type Amoxicillin [Trimox CAP] 500 mg PO BID #20 capsule 04/03/17 Unknown Rx Sulfamethoxazole/Trimethoprim 1 each PO BID #14 tablet 04/06/17 Unknown Rx [Bactrim Ds Tablet] Acetaminophen/Codeine [Tylenol #3] 1 tab PO Q6H PRN #10 tab 07/02/17 Unknown Rx Ibuprofen [Motrin] 800 mg PO Q8HR PRN #15 tablet 07/02/17 Unknown Rx cephALEXin [Keflex] 500 mg PO Q6HR #20 capsule 07/02/17 Unknown Rx metroNIDAZOLE [Flagyl] 500 mg PO Q12HR #14 tab 07/02/17 Unknown Rx Allergies Allergy/AdvReac Type Severity Reaction Status Date / Time latex Allergy Mild Rash Verified 01/13/21 09:19 lidocaine Allergy Swelling Verified 01/13/21 09:19 ED Review of Systems ROS: Stated complaint: BODYACHES Other details as noted in HPI Comment: All other systems reviewed and negative ED Past Medical Hx - Past Medical History Previous Medical History?: No Hx Hypertension: No Hx Congestive Heart Failure: No Hx Diabetes: No Hx Deep Vein Thrombosis: No Hx Renal Disease: No Hx Sickle Cell Disease: No Hx Seizures: No Hx Asthma: No Hx HIV: No Additional medical history: strep. throat - Surgical History Past Surgical History?: No - Social History Smoking Status: Never Smoker Substance Use Type: None - Medications Home Medications: Home Medications Medication Instructions Recorded Confirmed Last Taken Type Amoxicillin [Trimox CAP] 500 mg PO BID #20 capsule 04/03/17 Unknown Rx Sulfamethoxazole/Trimethoprim 1 each PO BID #14 tablet 04/06/17 Unknown Rx [Bactrim Ds Tablet] Acetaminophen/Codeine [Tylenol #3] 1 tab PO Q6H PRN #10 tab 07/02/17 Unknown Rx Ibuprofen [Motrin] 800 mg PO Q8HR PRN #15 tablet 07/02/17 Unknown Rx cephALEXin [Keflex] 500 mg PO Q6HR #20 capsule 07/02/17 Unknown Rx metroNIDAZOLE [Flagyl] 500 mg PO Q12HR #14 tab 07/02/17 Unknown Rx ED Physical Exam - General Limitations: No Limitations ED Course Vital Signs 01/13/21 01/13/21 09:22 18:15 Temperature 100.1 F H Pulse Rate 108 H Respiratory 18 16 Rate Blood Pressure 152/66 O2 Sat by Pulse 97 Oximetry ED Medical Decision Making - Radiology Data Radiology results: report reviewed Institution [facility] Approval Date 2021-01-13 18:48:06 Other Patient ID My Comment(s) Study Comments [facility] [address] [place] [address] XRay Report Signed Patient: BERNARD ZAZUETA MR#: [id number] : 1995 Acct:[id number] Age/Sex: 25 / F ADM Date: 01/13/21 Loc: ED Attending Dr: Ordering Physician: RAMONITA LEON Date of Service: 01/13/21 Procedure(s): XR chest routine 2V Accession Number(s): [id number] cc: RAMONITA LEON Fluoro Time In Minutes: CHEST 2 VIEWS INDICATION / CLINICAL INFORMATION: cough , f/c. COMPARISON: 12/07/2016 FINDINGS: SUPPORT DEVICES: None. HEART / MEDIASTINUM: No significant abnormality. LUNGS / PLEURA: No significant pulmonary or pleural abnormality. No pneumothorax. ADDITIONAL FINDINGS: No significant additional findings. IMPRESSION: 1. No acute findings. Signer Name: Curtis Robison MD Signed: 01/13/2021 6:41 PM Workstation Name: [email or web address] Transcribed By: SS Dictated By: Curtis Robison MD Electronically Authenticated By: Curtis Robison MD Signed Date/Time: 01/13/211840 DD/ 39 TD/TT: - Medical Decision Making 25-year-old -[place] Citizen female who was partially vaccinated on January 05, 2021 presents to the emergency room for fever chills runny nose sneezing cough that started Wednesday. Patient has not been Covid tested. She denies any chest pain no shortness of breath no nausea no vomiting no loss of taste or smell. She does admit to a decrease in appetite. Her last menstrual period was December 22, 2020 and states that she has had some spotting. Patient denies any abdominal pain. She denies any vaginal discharge denies any dysuria or urinary frequency or urgency. Chest x-ray is negative. Temperature came down after having acetaminophen 975 mg. Patient reports she feels much better. Recommend patient to get Covid testing. Take [id number] cold and sinus. Increase fluid intake advance diet as tolerated. Temperature 98.8, heart rate 90 blood pressure 121/78, 99% RA Critical care attestation.: If time is entered above; I have spent that time in minutes in the direct care of this critically ill patient, excluding procedure time. ED Disposition Clinical Impression: Infection due to COVID-19 virus variant of concern Allergic rhinitis Qualifiers: Allergic rhinitis trigger: unspecified Allergic rhinitis seasonality: unspe cified Qualified Code(s): J30.9 - Allergic rhinitis, unspecified Disposition: HOME / SELF CARE / HOMELESS Is pt being admited?: No Does the pt Need Aspirin: No Condition: Stable Instructions: COVID-19: How to Protect Yourself and Others - CDC, COVID-19 Frequently Asked Questions, Prevent the Spread of COVID-19 if You Are Sick - CDC Additional Instructions: Your symptoms appear most consistent with a nonspecific viral syndrome. However, given this current pandemic, COVID-19 is in the differential of possibilities. I do recommend outpatient Covid 19 testing. In the meantime, isolate/quarantine yourself and stay away from anyone who is elderly, immunocompromised or chronically ill. You can use ibuprofen every 6-8 hours and Tylenol every 4-8 hours, using the dosing on the back of the bottle, as needed for any fever or body aches. Return to the emergency department with any worsening of your symptoms, development of chest pain or shortness of breath, or with any acute distress. Referrals: PRIMARY CARE, [Primary Care Provider] - 3-5 Days [facility] [Provider Group] - 3-5 Days Forms: Work/School Release Form(ED)
--- NOTE | 2021-01-13 18:46 | XRay Report ---
CHEST 2 VIEWS INDICATION / CLINICAL INFORMATION: cough , f/c. COMPARISON: 12/07/2016 FINDINGS: SUPPORT DEVICES: None. HEART / MEDIASTINUM: No significant abnormality. LUNGS / PLEURA: No significant pulmonary or pleural abnormality. No pneumothorax. ADDITIONAL FINDINGS: No significant additional findings. IMPRESSION: 1. No acute findings. Signer Name: Curtis Robison MD Signed: 01/13/2021 6:41 PM Workstation Name: [id number]
== END 2021-01-13 21:21 | disposition home or self-care (01) ==
LOC: ED 08:43
DX: J30.9 Allergic rhinitis, unspecified (principal); Z20.822 Contact with and (suspected) exposure to COVID-19; Z88.6 Allergy status to analgesic agent; Z91.040 Latex allergy status; Z79.899 Other long term (current) drug therapy
CPT/HCPCS: 71046; 81001; 81025; 99283